=== PATIENT | female | born 1985 | race American Indian/Alaskan Native ===

== ENCOUNTER 2020-02-29 10:32 | Outpatient (CLI) | payer BC, OTHER ==
[2020-02-29 11:25] VITALS: BP 104/72
[2020-02-29] MEDS ORDERED: LACTATED RINGERS 500 ML IV ONE (12:00)
--- NOTE | 2020-03-01 08:19 | Ultrasound Report ---
ULTRASOUND BIOPHYSICAL PROFILE INDICATION: well being, decelerations in office. COMPARISON: None available. FINDINGS: heart rate is 150 beats per minute. breathing movement = 2 Gross body movement = 2 tone = 2 Qualitative amniotic fluid volume = 2 IMPRESSION: biophysical profile = 05/07 Signer Name: Harmeet Gusman Jr, MD Signed: 02/29/2020 1:59 PM Workstation Name: [id number]
== END 2020-02-29 15:39 | disposition home or self-care (01) ==
LOC: TRG 10:32 → APU 10:49 → TRG 15:39
PROVIDERS: ATTEND Obstetrics & Gynecology
DX: O62.9 Abnormality of forces of labor, unspecified (principal); O36.8330 Maternal care for abnormalities of the fetal heart rate or rhythm, third trimester, not applicable or unspecified; O24.419 Gestational diabetes mellitus in pregnancy, unspecified control; O99.513 Diseases of the respiratory system complicating pregnancy, third trimester; J45.909 Unspecified asthma, uncomplicated; Z3A.32 32 weeks gestation of pregnancy
CPT/HCPCS: 59025; 76819; 96360; J7120